=== PATIENT | male | born 1980 | race Caucasian/White ===

== ENCOUNTER 2018-02-08 07:19 | Emergency (ER) | payer BC, OTHER ==
[~2018-02-08] VITALS: Ht 182.9 cm; Wt 86.2 kg
[2018-02-08] MEDS ORDERED: ONDANSETRON 4 MG/2 ML (SDV) Z0FRAN ONE (08:42)
[2018-02-08] MEDS ORDERED: NS IV 1000 ML 1,000 ML IV ONE (08:46)
[2018-02-08] MEDS ORDERED: FAMOTIDINE 20MG/2ML IV (PEPCID) IVP ONE (09:00)
[2018-02-08] MEDS ORDERED: fentaNYL INJECTION 100 MCG/2 ML AMP IVP ONE (09:00)
[2018-02-08 09:02] LABS: BASOPHILS # (AUTO) 0.1 10^3/uL (0.0-0.1); BASOPHILS % (AUTO) 1 % (0-10); EOSINOPHILS # (AUTO) 0.2 10^3/uL (0.0-0.3); EOSINOPHILS % (AUTO) 1 % (0-10); HEMATOCRIT 46 % (40-54); HEMOGLOBIN 15.8 G/DL (13.3-17.7); LYMPHOCYTES # (AUTO) 3.5 X 10^3 (1.0-4.0); LYMPHOCYTES % (AUTO) 26 % (12-44); MEAN CORPUSCULAR HEMOGLOBIN 29 PG (25-34); MEAN CORPUSCULAR HGB CONC 35 G/DL (32-36); MEAN CORPUSCULAR VOLUME 85 FL (80-99); MEAN PLATELET VOLUME 10.5 FL (7.4-10.4); MONOCYTES % (AUTO) 8 % (0-12); NEUTROPHILS # (AUTO) 8.3 X 10^3 (1.8-7.8); NEUTROPHILS % (AUTO) 64 % (42-75); PLATELET COUNT 288 10^3/uL (130-400); RED BLOOD COUNT 5.38 10^6/uL (4.35-5.85); RED CELL DISTRIBUTION WIDTH 12.7 % (10.0-14.5); WHITE BLOOD COUNT 13.1 10^3/uL (4.3-11.0)
[2018-02-08 09:15] LABS: ALANINE AMINOTRANSFERASE 50 U/L (0-55); ALBUMIN 4.6 GM/DL (3.2-4.5); ALKALINE PHOSPHATASE 65 U/L (40-136); BILIRUBIN,TOTAL 0.9 MG/DL (0.1-1.0); BUN/CREATININE RATIO 7; CARBON DIOXIDE 26 MMOL/L (21-32); CHLORIDE 102 MMOL/L (98-107); CREATININE SERUM 1.28 MG/DL (0.60-1.30); GFR ESTIMATED > 60; GLUCOSE 91 MG/DL (70-105); LIPASE 15 U/L (8-78); POTASSIUM 4.1 MMOL/L (3.6-5.0); SODIUM 138 MMOL/L (135-145); TOTAL PROTEIN 7.6 GM/DL (6.4-8.2)
[2018-02-08] MEDS ORDERED: IOHEXOL 350 MG/ML 100 ML (OMNIPAQUE 350) VIAL IV ONE (09:15)
[2018-02-08] MEDS ORDERED: NS 250 ML (IVPB) BAG IV ONE (09:15)
[2018-02-08] MEDS ORDERED: RECEIVED CONTRAST (Hold Metformin) IV SCH (09:15)
--- NOTE | 2018-02-08 10:18 | Diagnostic Imaging Report ---
PROCEDURE: CT abdomen and pelvis with contrast, rule out appendicitis. TECHNIQUE: Multiple contiguous axial images were obtained through the abdomen and pelvis after the administration of intravenous contrast. INDICATION: Mid abdominal pain. No prior studies are available for comparison. The lung bases are clear. There is a low-density lesion right lobe of the liver measuring 17 mm in size. This appears to be isodense to liver on delayed images and may represent a hemangioma. Gallbladder is unremarkable. No biliary ductal dilatation is seen. The pancreas and spleen are unremarkable. No adrenal mass is identified. The kidneys are unremarkable. The aorta is nonaneurysmal. The small and large bowel loops are normal caliber. No obstruction is seen. The appendix is visualized and has a normal appearance. No definite CT findings to suggest acute appendicitis are identified. There is no free fluid in the abdomen or pelvis. Prostate is unremarkable. IMPRESSION: Unremarkable CT of the abdomen and pelvis. There are no findings to suggest acute appendicitis. Dictated by: Dictated on workstation # [id number]
[2018-02-08 10:49] LABS: BILIRUBIN,URINE NEGATIVE (NEGATIVE); CLARITY,URINE CLEAR; COLOR,URINE YELLOW; GLUCOSE, URINE (UA) NEGATIVE (NEGATIVE); KETONES,URINE NEGATIVE (NEGATIVE); LEUKOCYTE ESTERASE ,URINE NEGATIVE (NEGATIVE); NITRITE,URINE NEGATIVE (NEGATIVE); PH,URINE 8 (5-9); PROTEIN,URINE NEGATIVE (NEGATIVE); UROBILINOGEN,URINE NORMAL (NORMAL)
[2018-02-08 10:57] LABS: BACTERIA,URINE NEGATIVE /HPF; SQUAMOUS EPITHELIAL CELL,UR RARE /HPF; WBC,URINE RARE /HPF
--- NOTE | 2018-02-08 12:29 | Diagnostic Imaging Report ---
PROCEDURE: US Gallbladder. TECHNIQUE: Multiple real-time grayscale images were obtained over the right upper quadrant in various projections. INDICATION: Abdominal pain. FINDINGS: The liver is normal in size at 15.5 cm. No discrete liver mass is identified. The portal vein is patent and shows normal direction of flow. Gallbladder is without stones or sludge. No wall thickening or biliary ductal dilatation is seen. Pancreas is obscured by bowel gas. The right kidney is unremarkable. There is no ascites. IMPRESSION: Unremarkable gallbladder ultrasound. Dictated by: Dictated on workstation # [id number]
[2018-02-08] MEDS ORDERED: LIDOCAINE 2% VISCOUS 15 ML UDC ONE (12:34)
[2018-02-08] MEDS ORDERED: ANTACID SUSP 30 ML UDC (MYLANTA) ONE (12:34)
[2018-02-08] MEDS ORDERED: ANTACID SUSP 30 ML UDC (MYLANTA) PO ONE (12:45)
[2018-02-08] MEDS ORDERED: LIDOCAINE 2% VISCOUS 15 ML UDC PO ONE (12:45)
[2018-02-08] MEDS ORDERED: OMEP20TA7 PO (12:59)
[2018-02-08] MEDS ORDERED: ONDA4TAB11 SL (12:59)
--- NOTE | 2018-02-08 13:00 | ED Abdominal Pain ---
General Chief Complaint: Abdominal/GI Problems Stated Complaint: ABD PAIN Nursing Triage Note: Pt c/o mid abd pain starting Tuesday night 02/05. Pt reports pain returned at 1800 last night. Pt reports vomiting. Sepsis Screen: No Definite Risk Allergies and Home Medications Allergies Uncoded Allergies: NUTS (Allergy, Unknown, 02/08/18) Past Msqjwke-Vczpvf-Hvdtcb Hx Patient Social History Alcohol Use: Regular Use Number of Drinks Today: 0 Alcohol Beverage of Choice: Beer Recreational Drug Use: No Type Used: Smokeless Tobacco Recent Foreign Travel: No Contact w/Someone Who Travel: No Recent Infectious Disease Expo: No Recent Hopitalizations: No (DENIES HX) Physical Exam Vital Signs Vital Signs - First Documented 02/08/18 08:14 Temp 98.0 Pulse 63 Resp 18 B/P (MAP) 146/95 (112) Pulse Ox 100 O2 Delivery Room Air Capillary Refill : Less Than 3 Seconds Height/Weight/BMI Height: 6'0" Weight: 190lbs. oz. 86.308212to; BMI Method:Estimated Progress/Results/Core Measures Results/Orders Lab Results Laboratory Tests Test 02/08/18 08:40 02/08/18 10:40 Range/Units White Blood Count 13.1 H 4.3-11.0 10^3/uL Red Blood Count 5.38 4.35-5.85 10^6/uL Hemoglobin 15.8 13.3-17.7 G/DL Hematocrit 46 40-54 % Mean Corpuscular Volume 85 80-99 FL Mean Corpuscular Hemoglobin 29 25-34 PG Mean Corpuscular Hemoglobin Concent 35 32-36 G/DL Red Cell Distribution Width 12.7 10.0-14.5 % Platelet Count 288 130-400 10^3/uL Mean Platelet Volume 10.5 H 7.4-10.4 FL Neutrophils (%) (Auto) 64 42-75 % Lymphocytes (%) (Auto) 26 12-44 % Monocytes (%) (Auto) 8 0-12 % Eosinophils (%) (Auto) 1 0-10 % Basophils (%) (Auto) 1 0-10 % Neutrophils # (Auto) 8.3 H 1.8-7.8 X 10^3 Lymphocytes # (Auto) 3.5 1.0-4.0 X 10^3 Monocytes # (Auto) 1.0 0.0-1.0 X 10^3 Eosinophils # (Auto) 0.2 0.0-0.3 10^3/uL Basophils # (Auto) 0.1 0.0-0.1 10^3/uL Sodium Level 138 135-145 MMOL/L Potassium Level 4.1 3.6-5.0 MMOL/L Chloride Level 102 98-107 MMOL/L Carbon Dioxide Level 26 21-32 MMOL/L Anion Gap 10 5-14 MMOL/L Blood Urea Nitrogen 9 7-18 MG/DL Creatinine 1.28 0.60-1.30 MG/DL Estimat Glomerular Filtration Rate > 60 BUN/Creatinine Ratio 7 Glucose Level 91 70-105 MG/DL Calcium Level 10.0 8.5-10.1 MG/DL Corrected Calcium 8.5-10.1 MG/DL Total Bilirubin 0.9 0.1-1.0 MG/DL Aspartate Amino Transf (AST/SGOT) 29 5-34 U/L Alanine Aminotransferase (ALT/SGPT) 50 0-55 U/L Alkaline Phosphatase 65 40-136 U/L Total Protein 7.6 6.4-8.2 GM/DL Albumin 4.6 H 3.2-4.5 GM/DL Lipase 15 8-78 U/L Urine Color YELLOW Urine Clarity CLEAR Urine pH 8 5-9 Urine Specific [place] 1.010 L 1.016-1.022 Urine Protein NEGATIVE NEGATIVE Urine Glucose (UA) NEGATIVE NEGATIVE Urine Ketones NEGATIVE NEGATIVE Urine Nitrite NEGATIVE NEGATIVE Urine Bilirubin NEGATIVE NEGATIVE Urine Urobilinogen NORMAL NORMAL MG/DL Urine Leukocyte Esterase NEGATIVE NEGATIVE Urine RBC (Auto) NEGATIVE NEGATIVE Urine RBC NONE /HPF Urine WBC RARE /HPF Urine Squamous Epithelial Cells RARE /HPF Urine Crystals NONE /LPF Urine Bacteria NEGATIVE /HPF Urine Casts NONE /LPF Urine Mucus NEGATIVE /LPF Urine Culture Indicated NO My Orders Orders - PARRIS ROCHA MD Ua Culture If Indicated (02/08/18 07:24) Ondansetron Injection (Zofran Injectio (02/08/18 08:42) Cbc With Automated Diff (02/08/18 08:46) Comprehensive Metabolic Panel (02/08/18 08:46) Lipase (02/08/18 08:46) Saline Lock/Iv-Start (02/08/18 08:46) Ns Iv 1000 Ml (Sodium Chloride 0.9%) (02/08/18 08:46) Fentanyl Injection (Sublimaze Injection (02/08/18 09:00) Famotidine Injection (Pepcid Injection) (02/08/18 09:00) Ct Abd/Pelv W (Appendicitis) (02/08/18 08:53) Iohexol Injection (Omnipaque 350 Mg/Ml 1 (02/08/18 09:15) Contrast Received (Contrast Received) (02/08/18 09:15) Ns (Ivpb) (Sodium Chloride 0.9%) (02/08/18 09:15) Us Gallbladder [id number] (02/08/18 11:24) Lidocaine 2% Viscous 15 Ml (Xylocaine Vi (02/08/18 12:45) Antacid Suspension (Mylanta Suspension (02/08/18 12:45) Antacid Suspension (Mylanta Suspension (02/08/18 12:34) Lidocaine 2% Viscous 15 Ml (Xylocaine Vi (02/08/18 12:34) Medications Given in ED Current Medications Medications Dose Ordered Sig/Lia Route Start Time Stop Time Status Last Admin Dose Admin Al Hydrox/Mg Hydrox/Simethicone 30 ml ONCE ONCE PO 02/08/18 12:45 02/08/18 12:46 DC 02/08/18 12:40 30 ML Famotidine 20 mg ONCE ONCE IVP 02/08/18 09:00 02/08/18 09:01 DC 02/08/18 09:15 20 MG Fentanyl Citrate 50 mcg ONCE ONCE IVP 02/08/18 09:00 02/08/18 09:01 DC 02/08/18 09:15 50 MCG Iohexol 100 ml ONCE ONCE IV 02/08/18 09:15 02/08/18 09:33 DC 02/08/18 09:44 100 ML Lidocaine HCl 15 ml ONCE ONCE PO 02/08/18 12:45 02/08/18 12:46 DC 02/08/18 12:39 15 ML Ondansetron HCl 4 mg STK-MED ONCE .ROUTE 02/08/18 08:42 02/08/18 08:45 DC 02/08/18 08:45 8 MG Sodium Chloride 250 ml ONCE ONCE IV 02/08/18 09:15 02/08/18 09:33 DC 02/08/18 09:44 80 ML Sodium Chloride 1,000 ml @ 0 mls/hr Q0M ONCE IV 02/08/18 08:46 02/08/18 08:49 DC 02/08/18 09:10 1,000 MLS/HR Vital Signs/I&O 02/08/18 08:14 Temp 98.0 Pulse 63 Resp 18 B/P (MAP) 146/95 (112) Pulse Ox 100 O2 Delivery Room Air Blood Pressure Mean: 112 Departure Impression Primary Impression: Epigastric pain Additional Impression: Nausea and vomiting Qualified Codes: R11.2 - Nausea with vomiting, unspecified Disposition: 01 HOME, SELF-CARE Condition: Improved Departure-Patient Inst. Decision time for Depature: 12:57 Referrals: UNKNOWN (PCP) Primary Care Physician Patient Instructions: Acute Abdomen (Belly Pain), Adult (DC), Gastritis (DC) Add. Discharge Instructions: Start with a clear liquid diet today and gradually advance your diet with small quantities of bland food as tolerated. Take an antacid such as omeprazole daily for at least the next month. You may use Zofran (ondansetron) as prescribed for nausea and vomiting. Avoid the following: Eating large meals, eating close to bedtime, alcohol, tobacco products, caffeine, carbonation, citrus fruits and juices, tomato products, chocolate, mints, NSAID medications such as ibuprofen or naproxen, fatty or greasy foods, or anything else you know irritates your stomach. Follow-up with your primary care provider within the next few weeks. Return to care more promptly if you have worsening symptoms. All discharge instructions reviewed with patient and/or family. Voiced understanding. Scripts Ondansetron (Ondansetron Odt) 4 Mg Tab.rapdis 4 MG SL Q4H, #10 TAB Prov: PARRIS ROCHA MD 02/08/18 Omeprazole (Omeprazole) 20 Mg Tablet. 20 MG PO BID, #60 TAB Prov: PARRIS ROCHA MD 02/08/18 PARRIS ROCHA MD Feb 08, 2018 13:00
[2018-02-08 13:04] VITALS: BP 132/90
== END 2018-02-08 13:04 | disposition home or self-care (01) ==
LOC: ER 07:21
DX: R10.13 Epigastric pain (principal); R11.2 Nausea with vomiting, unspecified
CPT/HCPCS: 36415; 74177; 76705; 80053; 81000; 83690; 85025